=== PATIENT | female | born 1945 | race Caucasian/White ===

== ENCOUNTER 2022-01-17 07:02 | Day surgery (SDC) | payer OTHER, MEDICAID ==
[~2022-01-17] VITALS: Ht 157.5 cm; Wt 80.7 kg
[2022-01-17] MEDS ORDERED: BENZOCAINE 20% GEL 32 GM BOTTLE MM ONE (09:00)
[2022-01-17] MEDS ORDERED: NS IRRIG SOLN 1000 ML IR ONE (09:00)
[2022-01-17] MEDS ORDERED: ARTICAINE HCL/EPINEPHRINE 4%/1:200,000 BIT 1.7 ML CARTRIDGE IJ ONE (09:00)
[2022-01-17] MEDS ORDERED: NS 250 ML BAG IV ONE (09:00)
[2022-01-17 13:25] VITALS: BP_SYST 122
== END 2022-01-17 11:45 | disposition home or self-care (01) ==
LOC: SDS 07:02 → SMU 07:13 → SDS 11:45
PROVIDERS: ATTEND Dentist General Practice
DX: M27.2 Inflammatory conditions of jaws (principal); K05.5 Other periodontal diseases; M89.8X0 Other specified disorders of bone, multiple sites; M26.603 Bilateral temporomandibular joint disorder, unspecified; J01.01 Acute recurrent maxillary sinusitis; K05.223 Aggressive periodontitis, generalized, severe; K08.429 Partial loss of teeth due to periodontal diseases, unspecified class; I10 Essential (primary) hypertension; E78.5 Hyperlipidemia, unspecified; I25.10 Atherosclerotic heart disease of native coronary artery without angina pectoris; K21.9 Gastro-esophageal reflux disease without esophagitis; I25.2 Old myocardial infarction; E11.649 Type 2 diabetes mellitus with hypoglycemia without coma; G43.909 Migraine, unspecified, not intractable, without status migrainosus; Z79.84 Long term (current) use of oral hypoglycemic drugs; Z79.899 Other long term (current) drug therapy; Z20.822 Contact with and (suspected) exposure to COVID-19
CPT/HCPCS: 21026; 21210; 21248; 36415; 70140; 82962; 87426; C1713; J7050

== ENCOUNTER 2022-02-21 07:31 | Day surgery (SDC) | payer OTHER, MEDICAID ==
[~2022-02-21] VITALS: Ht 157.5 cm; Wt 80.7 kg
[2022-02-21] MEDS ORDERED: BENZOCAINE 20% GEL 32 GM BOTTLE MM ONE (10:00)
[2022-02-21] MEDS ORDERED: NS IRRIG SOLN 1000 ML IR ONE (10:00)
[2022-02-21] MEDS ORDERED: NS 250 ML BAG IV ONE (10:00)
[2022-02-21] MEDS ORDERED: ARTICAINE HCL/EPINEPHRINE 4%/1:200,000 BIT 1.7 ML CARTRIDGE IJ ONE (10:00)
[2022-02-21 10:44] VITALS: BP_SYST 142
== END 2022-02-21 10:30 | disposition home or self-care (01) ==
LOC: SDS 07:31 → SMU 07:35 → SDS 10:30
PROVIDERS: ATTEND Dentist General Practice
DX: M27.2 Inflammatory conditions of jaws (principal); K05.6 Periodontal disease, unspecified; I10 Essential (primary) hypertension; E78.5 Hyperlipidemia, unspecified; E11.9 Type 2 diabetes mellitus without complications; I25.10 Atherosclerotic heart disease of native coronary artery without angina pectoris; K21.9 Gastro-esophageal reflux disease without esophagitis; Z79.899 Other long term (current) drug therapy
CPT/HCPCS: 21025; 21215; 36415; 70140; 82962; 87426; C1713; J7050